=== PATIENT | male | born 1980 | race Caucasian/White ===

== ENCOUNTER 2016-05-25 09:30 | Emergency (ER) | payer MEDICAID ==
[2016-05-25] MEDS ORDERED: PHENAZOPYRIDINE 100 MG TABLET PO STA (10:34)
[2016-05-25] MEDS ORDERED: NITROFURANTOIN MACRO 100 MG CAPSULE PO STA (10:34)
== END 2016-05-25 10:40 | disposition home or self-care (01) ==
DX: N30.01 Acute cystitis with hematuria (principal); G80.9 Cerebral palsy, unspecified; F17.200 Nicotine dependence, unspecified, uncomplicated

== ENCOUNTER 2016-10-04 14:12 | Emergency (ER) | payer MEDICAID ==
[2016-10-04] MEDS ORDERED: IBUPROFEN 800 MG TABLET PO STA (16:50)
--- NOTE | 2016-10-04 16:55 | ED Physician Documentation ---
PD HPI BACK PAIN - Stated complaint Stated Complaint: BACK PX - Chief complaint Chief Complaint: Back Pain - History obtained from History obtained from: Patient - History of Present Illness Timing - onset: How many weeks ago (1) Timing - details: Waxing and waning Location: Lower Quality: Pain Worsened by: Twisting - Treatment prior to arrival Treatment prior to arrival: Cyclobenzaprine without relief. - Additional information Additional information: The patient is a 36-year-old male with history of cerebral palsy and back injury 17 years ago, who presents with recurrent episode of lower back pain. This episode has been waxing and waning for the past week. He denies any recent injury, but his symptoms were exacerbated after mowing his lawn. He denies fever , dysuria or urinary incontinence. He denies numbness or weakness in his lower extremities. He has been using cyclobenzeprine without relief. Review of Systems Constitutional: denies: Fever Nose: denies: Congestion Throat: denies: Sore throat Cardiac: denies: Chest pain / pressure Respiratory: denies: Dyspnea GI: denies: Abdominal Pain, Nausea, Vomiting : denies: Dysuria, Incontinent Skin: denies: Rash Musculoskeletal: reports: Back pain. denies: Neck pain Neurologic: denies: Focal weakness, Numbness, Headache PD PAST MEDICAL HISTORY - Past Medical History Cardiovascular: None Respiratory: None Neuro: Cerebral palsy, Other Endocrine/Autoimmune: None GI: GERD : Frequency, Other HEENT: Other Psych: None Musculoskeletal: Gout, Chronic back pain Derm: None - Past Surgical History Past Surgical History: Yes General: Bowel surgery, Other Ortho: Other - Present Medications Home Medications: Ambulatory Orders Medication Instructions Recorded Confirmed Allopurinol 100 mg PO BID 08/28/14 10/04/16 Oxybutynin [Ditropan] 5 mg PO BID 08/28/14 10/04/16 Cyclobenzaprine [Flexeril] 1 tab PO TID PRN 01/27/15 10/04/16 Omeprazole 20 mg PO DAILY 05/04/16 10/04/16 Fluticasone [Flonase] 1 spray PAWAN PRN PRN 10/04/16 10/04/16 Nitrofurantoin [Macrobid] 100 mg PO BID #10 capsule 10/04/16 - Allergies Allergies/Adverse Reactions: Allergies Allergy/AdvReac Type Severity Reaction Status Date / Time No Known Drug Allergies Allergy Verified 10/04/16 14:22 - Social History Does the pt smoke?: Yes Smoking Status: Current every day smoker Does the pt drink ETOH?: Yes Does the pt have substance abuse?: No - Immunizations Immunizations are current?: Yes - POLST Patient has POLST: No PD ED PE NORMAL - Vitals Vital signs reviewed: Yes (normal) - General General: Alert and oriented X 3, Well developed/nourished - HEENT HEENT: Atraumatic, EOMI, Pharynx benign - Neck Neck: No adenopathy, No JVD - Cardiac Cardiac: RRR, No murmur - Respiratory Respiratory: No respiratory distress, Clear bilaterally - Abdomen Abdomen: Soft, Other (Mild suprapubic tenderness to palpation, without rebound or guarding.) - Back Back: No spinal TTP, Other (Mild tenderness to palpation in the flank areas bilaterally.) - Derm Derm: No rash - Extremities Extremities: No edema, No calf tenderness / cord, Other (Straight leg raise test is negative bilaterally.) - Neuro Neuro: Alert and oriented X 3, No motor deficit, No sensory deficit Results - Vitals Vitals: Oxygen O2 Source Room air - Labs Labs: Microbiology 10/04/16 16:45 Urine Culture - Final Urine,Random Escherichia Coli Laboratory Tests 10/04/16 16:45 Urine Color YELLOW Urine Clarity CLOUDY Urine pH 6.0 Ur Specific [place] 1.020 Urine Protein NEGATIVE Urine Glucose (UA) NEGATIVE Urine Ketones NEGATIVE Urine Occult Blood TRACE-INTA Urine Nitrite POSITIVE H Urine Bilirubin NEGATIVE Urine Urobilinogen 0.2 (NORMAL) Ur Leukocyte Esterase LARGE H Urine RBC 6-10 H Urine WBC 11-25 H Ur Squamous Epith Cells NONE SEEN Urine Bacteria Many H Ur Microscopic Review INDICATED Urine Culture Comments INDICATED PD MEDICAL DECISION MAKING - ED course Complexity details: reviewed old records, reviewed results, re-evaluated patient , considered differential, d/w patient ED course: The patient's low back pain is most consistent with urinary tract infection. He does not appear septic, and I doubt pyelonephritis. Given the results of his urinalysis, I doubt that his back pain is musculoskeletal in etiology. Treatment in the emergency department included administration of nitrofurantoin and ibuprofen 800 mg orally. He is being discharged with prescription for Macrobid. I discussed with him the expected course of illness, antibiotic treatment and outpatient follow-up, as well as potentially worrisome signs or symptoms that should prompt reevaluation in the emergency department. Departure - Departure Disposition: 01 Home, Self Care Clinical Impression: Back pain Qualifiers: Back pain location: low back pain Chronicity: acute Back pain laterality: bilateral Sciatica presence: without sciatica Qualified Code(s): M54.5 - Low back pain UTI (urinary tract infection) Qualifiers: Urinary tract infection type: acute cystitis Hematuria presence: with hematuria Qualified Code(s): N30.01 - Acute cystitis with hematuria Condition: Stable Instructions: ED UTI Cystitis Male Follow-Up: Sandra Law ARNP [Primary Care Provider] - Prescriptions: Nitrofurantoin [Macrobid] 100 mg PO BID #10 capsule Comments: Drink plenty of fluids including cranberry juice. Take Macrobid twice daily as prescribed. Follow up with your primary physician within one to 2 weeks. Call to schedule an appointment. Return to the emergency department if you develop increasing pain, fever with shaking chills, persistent vomiting, or otherwise worsening symptoms. Discharge Date/Time: 10/04/16 17:31
[2016-10-04 16:56] LABS: BILIRUBIN,URINE NEGATIVE (NEGATIVE); UA w/ MICROSCOPIC CHARGE YES
[2016-10-04] MEDS ORDERED: IBUPROFEN 800 MG TABLET PO ONE (16:59)
[2016-10-04 17:13] LABS: UR CULTURE IF IND INDICATED
[2016-10-04] MEDS ORDERED: NITROFURANTOIN MACRO 100 MG CAPSULE PO STA (17:15)
[2016-10-04] MEDS ORDERED: NITROFURANTOIN MACRO 100 MG CAPSULE PO ONE (17:27)
[2016-10-04 17:36] VITALS: BP 128/86
== END 2016-10-04 17:31 | disposition home or self-care (01) ==
LOC: ED 14:12
DX: N30.00 Acute cystitis without hematuria (principal); M54.5 Low back pain; G80.9 Cerebral palsy, unspecified; K21.9 Gastro-esophageal reflux disease without esophagitis; F17.200 Nicotine dependence, unspecified, uncomplicated
CPT/HCPCS: 81001; 87077; 87086; 87181; 99283; A9270; 81003

== ENCOUNTER 2016-12-10 09:38 | Emergency (ER) | payer MEDICAID ==
--- NOTE | 2016-12-10 12:26 | XRAY Preliminary Report ---
Exam: XR Foot 3 View LT Impression: Focal area of sclerosis involving the posterior calcaneus that may represent a stress zoë ction, nondisplaced fracture, or normal trabeculations. Well-circumscribed sclerotic lesion in the distal tibia that most likely represents A benign fibro-osseous lesion. [facility] SITE ID: [id number]
--- NOTE | 2016-12-10 12:29 | XRAY Report ---
EXAM: LEFT FOOT RADIOGRAPHY EXAM DATE: 12/10/2016 11:19 AM. CLINICAL HISTORY: Pain in heel with ambulation. COMPARISON: None. TECHNIQUE: 3 views. FINDINGS: Mild increased sclerosis is seen involving the posterior calcaneus that may represent a stress reacti on or fracture. There is a focal area of increased sclerosis. It measures approximately 5 x 8 mm. The margins are well-circumscribed. The joint spaces are well-preserved. No calcaneal spur is identified . Impression: Focal area of sclerosis involving the posterior calcaneus that may represent a stress zoë ction, nondisplaced fracture, or normal trabeculations. Well-circumscribed sclerotic lesion in the distal tibia that most likely represents A benign fibro-osseous lesion. [facility] Referring Provider Line: [phone] SITE ID: [id number]
--- NOTE | 2016-12-10 12:57 | ED Physician Documentation ---
History of Present Illness - Stated complaint Stated Complaint: L FOOT INJ - Chief complaint Chief Complaint: Ext Problem - Additonal information Additional information: hx from pt 36 male twsited foot in a ditch 4 days ago still hurts Review of Systems Musculoskeletal: reports: Pain with weight bearing PD PAST MEDICAL HISTORY - Past Medical History Past Medical History: Yes Cardiovascular: None Respiratory: None Neuro: Cerebral palsy, Other Endocrine/Autoimmune: None GI: GERD : Frequency, Other HEENT: Other Psych: None Musculoskeletal: Gout, Chronic back pain Derm: None - Past Surgical History Past Surgical History: Yes General: Bowel surgery, Other Ortho: Other - Present Medications Home Medications: Ambulatory Orders Medication Instructions Recorded Confirmed Allopurinol 100 mg PO BID 08/28/14 12/10/16 Oxybutynin [Ditropan] 5 mg PO BID 08/28/14 12/10/16 Cyclobenzaprine [Flexeril] 1 tab PO TID PRN 01/27/15 12/10/16 Omeprazole 20 mg PO DAILY 05/04/16 12/10/16 Fluticasone [Flonase] 1 spray PAWAN PRN PRN 10/04/16 12/10/16 - Allergies Allergies/Adverse Reactions: Allergies Allergy/AdvReac Type Severity Reaction Status Date / Time No Known Drug Allergies Allergy Verified 12/10/16 09:49 - Social History Does the pt smoke?: Yes Smoking Status: Current every day smoker Does the pt drink ETOH?: Yes Does the pt have substance abuse?: No - Immunizations Immunizations are current?: No Immunizations: TDAP >10years/unknown - POLST Patient has POLST: No PD ED PE NORMAL - Vitals Vital signs reviewed: Yes - Extremities Extremities: Other (TTP plantar surface > dorsal proximal foot, + swelling, MSV intact) Results - Vitals Vitals: Vital Signs - 24 hr 12/10/16 09:46 Temperature 36.4 C L Heart Rate 97 Respiratory 14 Rate Blood Pressure 145/88 H O2 Saturation 100 Oxygen O2 Source Room air - Rads (name of study) foot Radiology: See rad report (possibloe stress fx or non displaced fx posterior calcaneus) Departure - Departure Disposition: 01 Home, Self Care Clinical Impression: Foot fracture, left Qualifiers: Encounter type: initial encounter Fracture type: closed Qualified Code(s): S92.902A - Unspecified fracture of left foot, initial encounter for closed fracture Condition: Good Instructions: ED Fx Foot, ED Crutch Walking Follow-Up: Sandra Law ARNP [Primary Care Provider] - [facility] [Provider Group] Comments: The xray shows a probable stress fracture to the calcaneus bone in your foot. Use the DAYO wrap, ice and elevation to keep the swelling down. Wear the boot for protection and stabilization. No weight bearing - use the crutches. Motrin and tylenol as needed for the pain. Follow up with orthopedics - you need to call to schedule And please follow up with your PMD to recheck your blood pressure - it was high today
[2016-12-10 13:59] VITALS: BP 141/65
== END 2016-12-10 13:15 | disposition home or self-care (01) ==
LOC: ED 09:38
DX: S92.902A Unspecified fracture of left foot, initial encounter for closed fracture (principal); X50.1XXA Overexertion from prolonged static or awkward postures, initial encounter; Y92.89 Other specified places as the place of occurrence of the external cause; F17.200 Nicotine dependence, unspecified, uncomplicated; G80.9 Cerebral palsy, unspecified
CPT/HCPCS: 99283

== ENCOUNTER 2017-03-11 08:39 | Outpatient (CLI) | payer MEDICAID ==
[2017-03-11 09:49] LABS: BASOPHILS % (AUTO) 0.3 %; EOSINOPHILS # (AUTO) 0.2 10^3/uL (0.0-0.7); EOSINOPHILS % (AUTO) 3.8 %; HCT - HEMATOCRIT 46.9 % (42.0-52.0); HGB - HEMOGLOBIN 16.4 g/dL (14.0-18.0); LYMPHOCYTES # (AUTO) 1.8 10^3/uL (1.5-3.5); LYMPHOCYTES % (AUTO) 29.5 %; MEAN CORPUSCULAR HEMOGLOBIN 31.5 pg (27.0-31.0); MEAN CORPUSCULAR HGB CONC 34.9 g/dL (32.0-36.0); MEAN CORPUSCULAR VOLUME 90.3 fL (80.0-94.0); MONOCYTES # (AUTO) 0.4 10^3/uL (0.0-1.0); MONOCYTES % (AUTO) 7.4 %; NEUTROPHILS # (AUTO) 3.5 10^3/uL (1.5-6.6); NUCLEATED RED BLOOD CELLS AUTO 0.1 /100WBC; RED BLOOD COUNT 5.19 10^6/uL (4.70-6.10); RED CELL DISTRIBUTION WIDTH 12.7 % (12.0-15.0)
[2017-03-11 10:07] LABS: ALBUMIN/GLOBULIN RATIO 1.4 (1.0-2.2); BILIRUBIN,TOTAL 1.3 mg/dL (0.2-1.0); BUN - BLOOD UREA NITROGEN 13 mg/dL (6-20); CALCIUM 9.8 mg/dL (8.5-10.3); CARBON DIOXIDE - CO2 28 mmol/L (21-32); CHLORIDE 101 mmol/L (101-111); CREATININE 1.1 mg/dL (0.6-1.2); GFR - MDRD 75 (>89); GLUCOSE 84 mg/dL (70-100); POTASSIUM 3.9 mmol/L (3.5-5.0); SODIUM 139 mmol/L (135-145)
== END 2017-03-11 08:40 | disposition home or self-care (01) ==
LOC: LAB 08:39
PROVIDERS: ATTEND Nurse Practitioner Family
DX: R35.1 Nocturia (principal); R29.90 Unspecified symptoms and signs involving the nervous system
CPT/HCPCS: 36415; 80053; 84443; 85025

== ENCOUNTER 2017-11-28 08:39 | Outpatient (CLI) | payer MEDICAID | END 2017-11-28 08:40 | disposition home or self-care (01) | LOC: LAB 08:39 | PROVIDERS: ATTEND Nurse Practitioner Family | DX: M10.9 Gout, unspecified (principal) | CPT/HCPCS: 36415; 84550 ==

== ENCOUNTER 2017-11-29 09:49 | Emergency (ER) | payer MEDICAID ==
--- NOTE | 2017-11-29 10:09 | ED Physician Documentation ---
PD HPI CHEST PAIN - Stated complaint Stated Complaint: LF UP CHEST PX/COUGHING - Chief complaint Chief Complaint: General - History obtained from History obtained from: Patient - History of Present Illness Timing - onset: How many days ago (several) Timing - details: Intermittant Pain level max: 1 Pain level now: 0 Quality: Dull Location: Left chest - Treatment prior to arrival Treatment prior to arrival: Naprosyn, which seems to have helped. - Additional information Additional information: The patient is a 37-year-old male who presents with dull left anterior chest pain that he states has been intermittent for the past several days. He also reports occasional cough without sputum production. He attributes it to his cigarette smoking. He denies fever, shortness of breath, nausea or vomiting. He took Naprosyn prior to arrival and states that it seems to have helped. He thinks the pain is due to lifting he did earlier in the week, or possibly due to his cough, but he "wants to be sure" that it is not something more serious. He reports history of bronchitis with similar symptoms in the past. Review of Systems Constitutional: denies: Fever Nose: denies: Congestion Throat: denies: Sore throat Cardiac: reports: Chest pain / pressure. denies: Palpitations Respiratory: reports: Cough (Occasional smoker's cough.). denies: Dyspnea GI: denies: Abdominal Pain, Nausea, Vomiting : denies: Dysuria Skin: denies: Rash Musculoskeletal: denies: Neck pain, Back pain, Extremity swelling Neurologic: denies: Headache PD PAST MEDICAL HISTORY - Past Medical History Cardiovascular: None Respiratory: None Endocrine/Autoimmune: None GI: GERD : Frequency, Other HEENT: Other Psych: None Musculoskeletal: Gout, Chronic back pain Derm: None - Past Surgical History Past Surgical History: Yes General: Bowel surgery, Other Ortho: Other - Present Medications Home Medications: Ambulatory Orders Medication Instructions Recorded Confirmed Allopurinol 100 mg PO BID 08/28/14 12/10/16 Oxybutynin [Ditropan] 5 mg PO BID 08/28/14 12/10/16 Cyclobenzaprine [Flexeril] 1 tab PO TID PRN 01/27/15 12/10/16 Omeprazole 20 mg PO DAILY 05/04/16 12/10/16 Fluticasone [Flonase] 1 spray PAWAN PRN PRN 10/04/16 12/10/16 - Allergies Allergies/Adverse Reactions: Allergies Allergy/AdvReac Type Severity Reaction Status Date / Time No Known Drug Allergies Allergy Verified 12/10/16 09:49 - Social History Does the pt smoke?: Yes Smoking Status: Current every day smoker Does the pt drink ETOH?: Yes Does the pt have substance abuse?: No - Immunizations Immunizations are current?: No Immunizations: TDAP >10years/unknown - POLST Patient has POLST: No PD ED PE NORMAL - Vitals Vital signs reviewed: Yes (Initially hypertensive.) - General General: Alert and oriented X 3, Well developed/nourished - HEENT HEENT: Atraumatic - Neck Neck: No adenopathy, No JVD - Cardiac Cardiac: RRR, No murmur - Respiratory Respiratory: No respiratory distress, Clear bilaterally, Other (No significant chest wall tenderness to palpation.) - Abdomen Abdomen: Soft, Non tender, Other (Scaphoid abdomen.) - Back Back: No CVA TTP - Derm Derm: No rash - Extremities Extremities: No edema, No calf tenderness / cord - Neuro Neuro: Alert and oriented X 3, No motor deficit, Normal speech Results - Vitals Vitals: Vital Signs - 24 hr 11/29/17 11/29/17 09:53 11:06 Temperature 36.7 C 36.6 C Heart Rate 69 73 Respiratory 20 20 Rate Blood Pressure 155/94 H 146/98 H O2 Saturation 98 100 Oxygen O2 Source Room air - EKG (time done) 09:55 Rate: Rate (enter#) (81) Rhythm: NSR Covert: Normal Intervals: Normal ID QRS: Normal Ischemia: Normal ST segments Computer interpretation: Disagree with computer (Probably not LAE---more likely high amplitude wave form is due to thin chest wall.) - Rads (name of study) CXR Radiology: Prelim report reviewed, EMP read contemporaneously, See rad report ( No acute disease in the chest.) PD MEDICAL DECISION MAKING - ED course Complexity details: reviewed old records, reviewed results, re-evaluated patient , considered differential, d/w patient ED course: The patient's presentation is most consistent with pleuritic chest pain. Chest x-ray reveals no evidence of pneumonia, pneumothorax, and I doubt pulmonary embolus. His symptoms are not suggestive of cardiac ischemia, and his electrocardiogram reveals no acute abnormalities. I discussed with him the diagnosis, expected course of illness, symptomatic treatment and outpatient follow-up, as well as potentially worrisome signs or symptoms that should prompt reevaluation in the emergency department. - Sepsis Event Vital Signs: Vital Signs - 24 hr 11/29/17 11/29/17 09:53 11:06 Temperature 36.7 C 36.6 C Heart Rate 69 73 Respiratory 20 20 Rate Blood Pressure 155/94 H 146/98 H O2 Saturation 98 100 Oxygen O2 Source Room air Departure - Departure Disposition: 01 Home, Self Care Clinical Impression: Cough Chest pain Qualifiers: Chest pain type: pleurodynia Qualified Code(s): R07.81 - Pleurodynia Condition: Stable Instructions: ED Chest Pain Pleurisy Follow-Up: Gabbi Colunga PA-C [Physician No Access] - Comments: Try to stop smoking cigarettes. Continue to use Naprosyn or ibuprofen as needed for discomfort. Follow up with your primary provider within 2 weeks. Call to schedule appointment. Return to the emergency department if you develop increasing chest pain, shortness of breath, or otherwise worsening symptoms. Discharge Date/Time: 11/29/17 11:07
--- NOTE | 2017-11-29 10:44 | XRAY Report ---
Procedure Date: 11/29/2017 Accession Number: [id number] / [id number] Procedure: XR - Chest 2 View X-Ray CPT Code: 12851 FULL RESULT: EXAM: CHEST RADIOGRAPHY EXAM DATE: 11/29/2017 10:20 AM. CLINICAL HISTORY: Left sided chest pain. COMPARISON: 02/04/2016. TECHNIQUE: 2 views. FINDINGS: Lungs/Pleura: No focal opacities evident. No pleural effusion. No pneumothorax. Normal volumes. Mediastinum: Heart and mediastinal contours are unremarkable. Other: No acute osseous abnormalities. IMPRESSION: 1. No acute disease in the chest. [facility]
[2017-11-29 11:07] VITALS: BP 146/98
== END 2017-11-29 11:07 | disposition home or self-care (01) ==
LOC: ED 09:49
DX: R05 Cough (principal); R07.81 Pleurodynia; F17.200 Nicotine dependence, unspecified, uncomplicated
CPT/HCPCS: 71046; 93005; 99283; 99284

== ENCOUNTER 2018-03-14 10:46 | Emergency (ER) | payer MEDICAID ==
[2018-03-14 10:50] VITALS: BP 145/102
[2018-03-14] MEDS ORDERED: METHOCARBAMOL 500 MG TABLET PO STA (12:42)
[2018-03-14] MEDS ORDERED: KETOROLAC 60 MG/2 ML VIAL IM STA (12:42)
--- NOTE | 2018-03-14 12:46 | ED Physician Documentation ---
History of Present Illness - Stated complaint Stated Complaint: LEFT BACK PX - Chief complaint Chief Complaint: Back Pain - History obtained from History obtained from: Patient - History of Present Illness Timing: Chronic Pain level max: 8 Pain level now: 8 Improved by: rest Worsened by: walking, movement - Additonal information Additional information: Patient is a 37-year-old male who presents to the emergency department with left hip pain and left low back pain. This is been ongoing for several years but worsening recently. States it hurts more when he stretches his hip. He took his Flexeril at home without relief. 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 States has not seen physical therapy review. He also has cerebral palsy and walks with a different gait and this has put increased pressure on his hip and back. No numbness or tingling. No loss of bowel or bladder control. No fevers. No IV drug use. Review of Systems Constitutional: denies: Fever, Chills Respiratory: denies: Cough GI: denies: Nausea, Vomiting, Diarrhea Skin: denies: Rash Musculoskeletal: denies: Neck pain Neurologic: denies: Focal weakness, Numbness, Headache PD PAST MEDICAL HISTORY - Past Medical History Cardiovascular: None Respiratory: None Endocrine/Autoimmune: None GI: GERD : Frequency, Other HEENT: Other Psych: None Musculoskeletal: Gout, Chronic back pain Derm: None - Past Surgical History Past Surgical History: Yes General: Bowel surgery, Other Ortho: Other - Present Medications Home Medications: Ambulatory Orders Medication Instructions Recorded Confirmed Allopurinol 100 mg PO BID 08/28/14 12/10/16 Oxybutynin [Ditropan] 5 mg PO BID 08/28/14 12/10/16 Cyclobenzaprine [Flexeril] 1 tab PO TID PRN 01/27/15 12/10/16 Fluticasone [Flonase] 1 spray PAWAN PRN PRN 10/04/16 12/10/16 Meloxicam [Mobic] 15 mg PO DAILY PRN #20 tablet 03/14/18 Methocarbamol [Robaxin-750] 750 mg PO Q8H PRN #10 tablet 03/14/18 raNITIdine [Zantac] 150 mg PO DAILY 03/14/18 03/14/18 - Allergies Allergies/Adverse Reactions: Allergies Allergy/AdvReac Type Severity Reaction Status Date / Time No Known Drug Allergies Allergy Verified 03/14/18 10:50 - Social History Does the pt smoke?: Yes Smoking Status: Current every day smoker Does the pt drink ETOH?: Yes Does the pt have substance abuse?: No - Immunizations Immunizations are current?: No Immunizations: TDAP >10years/unknown - POLST Patient has POLST: No PD ED PE NORMAL - Vitals Vital signs reviewed: Yes - General General: Alert and oriented X 3, No acute distress - HEENT HEENT: Moist mucous membranes - Neck Neck: Supple, no meningeal sign - Cardiac Cardiac: RRR, Strong equal pulses - Respiratory Respiratory: No respiratory distress, Clear bilaterally - Back Back: No spinal TTP - Derm Derm: Warm and dry - Extremities Extremities: Other (Left hip - Muscle spasm present over the iliac crests and left hip. There is no bony tenderness. There is no tenderness over the sacroiliac joint. No tenderness over the lumbar spine. No step-off or deformity.) - Neuro Neuro: Alert and oriented X 3, No motor deficit, No sensory deficit, Other (Normal bilateral lower extremity patellar and ankle jerk reflexes. Normal great toe extension bilaterally. no saddle anesthesia) - Psych Psych: Normal mood, Normal affect Results - Vitals Vitals: Vital Signs - 24 hr 03/14/18 10:48 Temperature 36.7 C Heart Rate 80 Respiratory 16 Rate Blood Pressure 145/102 H O2 Saturation 99 Oxygen O2 Source Room air PD MEDICAL DECISION MAKING - ED course Complexity details: considered differential, d/w patient ED course: Patient is a 37-year-old male who presents to the emergency department with spasm in the left hip. Will place on muscle relaxants and anti-inflammatories for home. He is well-appearing, nontoxic. No evidence of sacroiliitis, cauda equina, epidural abscess. Ambulating well. Patient counseled regarding signs and symptoms for which I believe and urgent re-evaluation would be necessary. Patient with good understanding of and agreement to plan and is comfortable g oing home at this time This document was made in part using voice recognition software. While efforts are made to proofread this document, sound alike and grammatical errors may occur. Departure - Departure Disposition: 01 Home, Self Care Clinical Impression: Muscle spasm Condition: Good Instructions: ED Spasm Muscle Follow-Up: Sandra Law ARNP [Primary Care Provider] - Within 1 week Prescriptions: Meloxicam [Mobic] 15 mg PO DAILY PRN #20 tablet PRN Reason: pain Methocarbamol [Robaxin-750] 750 mg PO Q8H PRN #10 tablet PRN Reason: muscle spasm Comments: Use the medications as prescribed. Follow-up with your doctor for further care. They may want to refer you to physical therapy again for your hip. Return if you worsen Discharge Date/Time: 03/14/18 13:13
== END 2018-03-14 13:13 | disposition home or self-care (01) ==
LOC: ED 10:46
DX: M62.838 Other muscle spasm (principal); M25.552 Pain in left hip; F17.200 Nicotine dependence, unspecified, uncomplicated
CPT/HCPCS: 96372; 99283; A9270

== ENCOUNTER 2018-07-24 15:15 | Emergency (ER) | payer MEDICAID ==
[2018-07-24 15:21] VITALS: BP 129/78
[2018-07-24] MEDS ORDERED: ACETAMINOPHEN 500 MG TABLET PO STA (15:46)
[2018-07-24] MEDS ORDERED: NAPROXEN 250 MG TABLET PO STA (15:46)
--- NOTE | 2018-07-24 16:14 | ED Physician Documentation ---
History of Present Illness - Stated complaint Stated Complaint: FEVER - Chief complaint Chief Complaint: Fever - Additonal information Additional information: 38-year-old male presents emergency department with 1 day of fevers, body aches, chills, sore throat and cough.No other associated symptoms. No shortness of breath or wheezing. Symptoms are described as moderate. Review of Systems Constitutional: reports: Fever, Chills, Myalgias, Fatigue Eyes: denies: Discharge Ears: denies: Drainage/discharge Nose: reports: Rhinorrhea / runny nose, Congestion Throat: reports: Sore throat Cardiac: denies: Chest pain / pressure Respiratory: reports: Cough GI: denies: Abdominal Pain : denies: Dysuria Skin: denies: Rash Musculoskeletal: denies: Neck pain Neurologic: denies: Generalized weakness PD PAST MEDICAL HISTORY - Past Medical History Cardiovascular: None Respiratory: None Endocrine/Autoimmune: None GI: GERD : Frequency, Other HEENT: Other Psych: None Musculoskeletal: Gout, Chronic back pain Derm: None - Past Surgical History Past Surgical History: Yes General: Bowel surgery, Other Ortho: Other - Present Medications Home Medications: Ambulatory Orders Medication Instructions Recorded Confirmed Allopurinol 100 mg PO BID 08/28/14 12/10/16 Oxybutynin [Ditropan] 5 mg PO BID 08/28/14 12/10/16 Cyclobenzaprine [Flexeril] 1 tab PO TID PRN 01/27/15 12/10/16 raNITIdine [Zantac] 150 mg PO DAILY 03/14/18 03/14/18 Albuterol Sulf [Ventolin Hfa 1 - 2 puffs INH Q4HR PRN #1 inhaler 04/25/18 Inhaler] Benzonatate [Tessalon Perle] 100 - 200 mg PO TID PRN #30 capsule 04/25/18 - Allergies Allergies/Adverse Reactions: Allergies Allergy/AdvReac Type Severity Reaction Status Date / Time No Known Drug Allergies Allergy Verified 07/24/18 15:21 - Social History Does the pt smoke?: Yes Smoking Status: Current every day smoker Does the pt drink ETOH?: Yes Does the pt have substance abuse?: No - Immunizations Immunizations are current?: No Immunizations: TDAP >10years/unknown - POLST Patient has POLST: No PD ED PE NORMAL - General General: Alert and oriented X 3, No acute distress - HEENT HEENT: Atraumatic, PERRL, EOMI, Ears normal, Moist mucous membranes - Neck Neck: Supple, no meningeal sign - Cardiac Cardiac: RRR (Tachycardia secondary to the acute viral process), Strong equal pulses - Respiratory Respiratory: No respiratory distress, Clear bilaterally - Derm Derm: Normal color - Extremities Extremities: No deformity - Neuro Neuro: Alert and oriented X 3, conference concierge 2-12 intact, No motor deficit, Normal speech - Psych Psych: Normal mood Results - Vitals Vitals: Vital Signs - 24 hr 07/24/18 15:20 Temperature 38.0 C H Heart Rate 118 H Respiratory 18 Rate Blood Pressure 129/78 O2 Saturation 97 Oxygen O2 Source Room air - Labs Labs: Laboratory Tests 07/24/18 15:20 Influenza A (Rapid) POSITIVE H Influenza B (Rapid) Negative PD MEDICAL DECISION MAKING - ED course ED course: The patient has acute influenza and appears appropriate for discharge and ongoing outpatient management. There are no clinical findings to suggest a superimposed bacterial infection currently the patient appears appropriate for discharge and ongoing outpatient management. I recommended returning to the emergency department for any worsening or any concerns. Departure - Departure Disposition: Home, Self Care Clinical Impression: Influenza Condition: Good Instructions: ED Fever Control Ch, ED Flu Follow-Up: Lyubov Yarbrough DNP [Primary Care Provider] - Within 1 week Comments: Please return to the emergency department for worsening symptoms or any concerns
== END 2018-07-24 16:16 | disposition home or self-care (01) ==
LOC: ED 15:15
DX: J11.1 Influenza due to unidentified influenza virus with other respiratory manifestations (principal); F17.200 Nicotine dependence, unspecified, uncomplicated
CPT/HCPCS: 87275; 87276; 99283; A9270

== ENCOUNTER 2018-07-31 01:28 | Emergency (ER) | payer MEDICAID ==
--- NOTE | 2018-07-31 01:41 | ED Physician Documentation ---
PD HPI URI - Stated complaint Stated Complaint: COUGH - History obtained from History obtained from: Patient - History of Present Illness Timing - onset: How many weeks ago (1) Timing details: Gradual onset, Waxing and waning Pain level now: 6 (chest pain) Associated symptoms: Fever (Tmax 102), Chills, Sweats, Ear pain, Productive cough, Chest pain Similar symptoms before: Diagnosis (influenza) Recently seen: Emergency Dept - Additional information Additional information: T+R from this ED 07/24 after diagnosed with influenza. He returns to the ED c/o increasing cough which began 4 days ago and has become increasingly productive (green sputum), ongoing fevers, bilateral lower chest pain (with coughing). He feels both ears are "clogged" with muffled hearing and sensation of fullness. Review of Systems Constitutional: reports: Fever, Chills, Myalgias, Sweats Ears: reports: Loss of hearing (decreased hearing/muffled), Ear pain. denies: Drainage/discharge, Tinnitus/ringing Throat: denies: Sore throat Cardiac: reports: Chest pain / pressure Respiratory: reports: Cough. denies: Dyspnea, Hemoptysis, Wheezing Neurologic: reports: Headache PD PAST MEDICAL HISTORY - Past Medical History Cardiovascular: None Respiratory: None Endocrine/Autoimmune: None GI: GERD : Frequency, Other HEENT: Other Psych: None Musculoskeletal: Gout, Chronic back pain Derm: None - Past Surgical History Past Surgical History: Yes General: Bowel surgery, Other Ortho: Other - Present Medications Home Medications: Ambulatory Orders Medication Instructions Recorded Confirmed Allopurinol 100 mg PO BID 08/28/14 12/10/16 Oxybutynin [Ditropan] 5 mg PO BID 08/28/14 12/10/16 Cyclobenzaprine [Flexeril] 1 tab PO TID PRN 01/27/15 12/10/16 raNITIdine [Zantac] 150 mg PO DAILY 03/14/18 03/14/18 Albuterol Sulf [Ventolin Hfa 1 - 2 puffs INH Q4HR PRN #1 inhaler 04/25/18 Inhaler] Benzonatate [Tessalon Perle] 100 - 200 mg PO TID PRN #30 capsule 04/25/18 Azithromycin 250 mg PO DAILY #4 tablet 07/31/18 Benzonatate [Tessalon Perle] 100 - 200 mg PO TID PRN #30 capsule 07/31/18 Hydrocodone/Acetaminophen 1 - 2 each PO Q6H PRN #10 tablet 07/31/18 [Hydrocodon-Acetaminophen 5-325] Oseltamivir [Tamiflu] 75 mg PO BID #9 capsule 07/31/18 - Allergies Allergies/Adverse Reactions: Allergies Allergy/AdvReac Type Severity Reaction Status Date / Time No Known Drug Allergies Allergy Verified 07/31/18 01:42 - Social History Does the pt smoke?: Yes Smoking Status: Current every day smoker Does the pt drink ETOH?: Yes Does the pt have substance abuse?: No - Immunizations Immunizations are current?: No Immunizations: TDAP >10years/unknown - POLST Patient has POLST: No PD ED PE NORMAL - Vitals Vital signs reviewed: Yes - General General: Alert and oriented X 3, No acute distress, Well developed/nourished - Neck Neck: Supple, no meningeal sign - Cardiac Cardiac: RRR, No murmur - Respiratory Respiratory: No respiratory distress - Abdomen Abdomen: Soft, Non tender - Extremities Extremities: No edema PD ED PE EXPANDED - Respiratory Respiratory: Rhonchi (bilateral bases, L>R) Results - Vitals Vitals: Vital Signs - 24 hr 07/31/18 07/31/18 01:30 02:37 Temperature 36.2 C L Heart Rate 78 95 Respiratory 18 17 Rate Blood Pressure 120/89 H 115/79 O2 Saturation 97 95 Oxygen O2 Source Room air PD MEDICAL DECISION MAKING - ED course Complexity details: reviewed old records, considered differential, d/w patient ED course: worsening symptoms since ED visit one week ago when he had flu A (by swab). He has bilateral rhonchi, mostly left base, and now has productive cough as well as ongoing fevers. Will forgo CXR and treat for suspected early pneumonia; antibiotic given/prescribed for possible bacterial etiology, but also started on Tamiflu (worsening symptoms/progressive illness, as well as PMHx of cerebral palsy, which puts him at higher risk for complications of influenza per CDC criteria). He requests something for his chest pain and I recommended robitussin AC; he then says he already tried this at home and it was ineffective. Given vicodin and rx for short course of same. Departure - Departure Disposition: Home, Self Care Clinical Impression: Influenza and pneumonia Condition: Good Instructions: ED Flu, ED Pneumonia Adult, Medication: Tamiflu (Oseltamivir) Follow-Up: Lyubov Yarbrough DNP [Primary Care Provider] - (3-5 days) Prescriptions: Azithromycin 250 mg PO DAILY #4 tablet Benzonatate [Tessalon Perle] 100 - 200 mg PO TID PRN #30 capsule PRN Reason: Cough Hydrocodone/Acetaminophen [Hydrocodon-Acetaminophen 5-325] 1 - 2 each PO Q6H PRN #10 tablet PRN Reason: pain Oseltamivir [Tamiflu] 75 mg PO BID #9 capsule Discharge Date/Time: 07/31/18 02:44
[2018-07-31] MEDS ORDERED: OSELTAMIVIR 75 MG CAPSULE PO STA (02:22)
[2018-07-31] MEDS ORDERED: AZITHROMYCIN 250 MG TABLET PO STA (02:23)
[2018-07-31] MEDS ORDERED: HYDROcod/ACETAM 5/325 MG TABLET PO STA (02:23)
[2018-07-31] MEDS ORDERED: BENZONATATE 100 MG CAPSULE PO STA (02:23)
[2018-07-31 02:40] VITALS: BP 115/79
== END 2018-07-31 02:44 | disposition home or self-care (01) ==
LOC: ED 01:28
DX: J10.00 Influenza due to other identified influenza virus with unspecified type of pneumonia (principal); G80.9 Cerebral palsy, unspecified; F17.200 Nicotine dependence, unspecified, uncomplicated
CPT/HCPCS: 99283; A9270

== ENCOUNTER 2018-08-14 10:02 | Outpatient (CLI) | payer MEDICAID ==
--- NOTE | 2018-08-14 13:33 | XRAY Report ---
Reason: INFLUENZA,PRODUCTIVE COUGH,ASTHMA Procedure Date: 08/14/2018 Accession Number: [id number] / [id number] Procedure: XR - Chest 2 View X-Ray CPT Code: 75370 FULL RESULT: EXAM: CHEST RADIOGRAPHY EXAM DATE: 08/14/2018 10:40 AM. CLINICAL HISTORY: Influenza, productive cough, asthma. COMPARISON: CHEST 2 VIEW 04/25/2018 2:19 PM. TECHNIQUE: 2 views. FINDINGS: Lungs/Pleura: No focal opacities evident. No pleural effusion. No pneumothorax. Normal volumes. Mediastinum: Heart and mediastinal contours are unremarkable. Other: None. IMPRESSION: No acute airspace consolidation. RADIA
== END 2018-08-14 10:03 | disposition home or self-care (01) ==
LOC: DI 10:02
PROVIDERS: ATTEND Nurse Practitioner
DX: J10.1 Influenza due to other identified influenza virus with other respiratory manifestations (principal); J45.991 Cough variant asthma; R05 Cough
CPT/HCPCS: 71046

== ENCOUNTER 2018-10-14 12:06 | Emergency (ER) | payer MEDICAID ==
[2018-10-14 12:14] VITALS: BP 149/96
[2018-10-14] MEDS ORDERED: IPRATROPIUM/ALBUTEROL 3 ML NEB INH STA (13:39)
--- NOTE | 2018-10-14 13:42 | ED Physician Documentation ---
PD HPI DYSPNEA - Stated complaint Stated Complaint: SOA - Chief complaint Chief Complaint: Resp - History obtained from History obtained from: Patient - History of Present Illness Timing - onset: Other (38-year-old with history of tobacco abuse presents with 2 months of persistent cough and shortness of breath that started after having influenza in July. He is actually slowly improving but the symptoms are persistent. He seems to perseverate on the fact that the first 2 times he was here he was not "given" a chest x-ray. But he had a subsequent x-ray performed by his primary care physician that was reportedly negative.) Review of Systems Constitutional: denies: Fever, Chills Nose: denies: Rhinorrhea / runny nose, Congestion Throat: denies: Sore throat Cardiac: denies: Chest pain / pressure, Palpitations Respiratory: reports: Dyspnea, Cough. denies: Hemoptysis, Wheezing PD PAST MEDICAL HISTORY - Past Medical History Cardiovascular: None Respiratory: None Endocrine/Autoimmune: None GI: GERD : Frequency, Other HEENT: Other Psych: None Musculoskeletal: Gout, Chronic back pain Derm: None - Past Surgical History Past Surgical History: Yes General: Bowel surgery, Other Ortho: Other - Present Medications Home Medications: Ambulatory Orders Medication Instructions Recorded Confirmed Allopurinol 100 mg PO BID 08/28/14 12/10/16 Oxybutynin [Ditropan] 5 mg PO BID 08/28/14 12/10/16 Cyclobenzaprine [Flexeril] 1 tab PO TID PRN 01/27/15 12/10/16 raNITIdine [Zantac] 150 mg PO DAILY 03/14/18 03/14/18 Albuterol Sulf [Ventolin Hfa 1 - 2 puffs INH Q4HR PRN #1 inhaler 04/25/18 Inhaler] Benzonatate [Tessalon Perle] 100 - 200 mg PO TID PRN #30 capsule 04/25/18 Azithromycin 250 mg PO DAILY #4 tablet 07/31/18 Benzonatate [Tessalon Perle] 100 - 200 mg PO TID PRN #30 capsule 07/31/18 Hydrocodone/Acetaminophen 1 - 2 each PO Q6H PRN #10 tablet 07/31/18 [Hydrocodon-Acetaminophen 5-325] Oseltamivir [Tamiflu] 75 mg PO BID #9 capsule 07/31/18 Albuterol Sulf [Ventolin Hfa 1 - 2 puffs INH Q4HR PRN #1 inhaler 10/14/18 Inhaler] Azithromycin [Zithromax] 1 tab PO DAILY #6 tablet 10/14/18 predniSONE [Deltasone] 20 mg PO [id number] #21 tab 10/14/18 - Allergies Allergies/Adverse Reactions: Allergies Allergy/AdvReac Type Severity Reaction Status Date / Time No Known Drug Allergies Allergy Verified 10/14/18 12:13 - Social History Does the pt smoke?: Yes Smoking Status: Current every day smoker Does the pt drink ETOH?: Yes Does the pt have substance abuse?: No - Immunizations Immunizations are current?: No Immunizations: TDAP >10years/unknown - POLST Patient has POLST: No PD ED PE NORMAL - Vitals Vital signs reviewed: Yes - General General: Alert and oriented X 3, No acute distress, Well developed/nourished - HEENT HEENT: PERRL, EOMI, Ears normal - Neck Neck: Supple, no meningeal sign, No bony TTP - Cardiac Cardiac: RRR, No murmur - Respiratory Respiratory: No respiratory distress, Other (Mild diffuse expiratory wheezes with excellent air motion) - Abdomen Abdomen: Non tender - Extremities Extremities: No edema, No calf tenderness / cord - Neuro Neuro: Alert and oriented X 3, Normal speech Results - Vitals Vitals: Vital Signs - 24 hr 10/14/18 12:12 Temperature 37.0 C Heart Rate 80 Respiratory 20 Rate Blood Pressure 149/96 H O2 Saturation 97 Oxygen O2 Source Room air PD MEDICAL DECISION MAKING - ED course ED course: 38-year-old gentleman with persistent bronchitic symptoms of 2 months duration with underlying tobacco abuse. Given the long time course and potential for underlying COPD he was treated with steroids and antibiotics. I offered a chest x-ray as he seemed to perseverate on that but after discussion when I made it clear that would be unlikely to change today's treatment he declined. Departure - Departure Disposition: 01 Home, Self Care Clinical Impression: Bronchitis Condition: Good Record reviewed to determine appropriate education?: Yes Instructions: ED Bronchitis Asthmatic, ED Smoking Cessation Prescriptions: Albuterol Sulf [Ventolin Hfa Inhaler] 1 - 2 puffs INH Q4HR PRN #1 inhaler PRN Reason: Shortness Of Air/Wheezing Azithromycin [Zithromax] 1 tab PO DAILY #6 tablet predniSONE [Deltasone] 20 mg PO [id number] #21 tab Comments: Call your doctor to arrange a follow-up appointment, make the next available vanesa ointment. In the interim, return anytime if worse or if new symptoms develop. Your blood pressure was elevated today on check into the emergency department. This does not mean that you have hypertension, it is a common phenomenon to come to the emergency department and have elevated blood pressure. I recommend that you see your primary care physician within the week to have it rechecked when y ou are feeling better.
== END 2018-10-14 13:59 | disposition home or self-care (01) ==
LOC: ED 12:06
DX: J40 Bronchitis, not specified as acute or chronic (principal); R03.0 Elevated blood-pressure reading, without diagnosis of hypertension; F17.200 Nicotine dependence, unspecified, uncomplicated
CPT/HCPCS: 94640; 99283

== ENCOUNTER 2019-12-07 10:14 | Outpatient (CLI) | payer MEDICAID ==
[2019-12-07 10:32] LABS: BASOPHILS % (AUTO) 0.4 %; EOSINOPHILS # (AUTO) 0.1 10^3/uL (0.0-0.7); EOSINOPHILS % (AUTO) 2.9 %; HGB - HEMOGLOBIN 16.2 g/dL (14.0-18.0); LYMPHOCYTES # (AUTO) 1.6 10^3/uL (1.5-3.5); LYMPHOCYTES % (AUTO) 34.4 %; MEAN CORPUSCULAR HEMOGLOBIN 32.5 pg (27.0-31.0); MEAN CORPUSCULAR HGB CONC 36.4 g/dL (32.0-36.0); MEAN CORPUSCULAR VOLUME 89.4 fL (80.0-94.0); MEAN PLATELET VOLUME 10.2 fL (7.4-11.4); MONOCYTES # (AUTO) 0.5 10^3/uL (0.0-1.0); MONOCYTES % (AUTO) 9.9 %; NEUTROPHILS # (AUTO) 2.4 10^3/uL (1.5-6.6); PLT - PLATELET COUNT 171 10^3/uL (130-450); RED BLOOD COUNT 4.98 10^6/uL (4.70-6.10); RED CELL DISTRIBUTION WIDTH 12.6 % (12.0-15.0); WHITE BLOOD COUNT 4.6 x10^3/uL (4.8-10.8)
[2019-12-07 10:45] LABS: ALBUMIN 4.6 g/dL (3.2-5.5); ALBUMIN/GLOBULIN RATIO 1.3 (1.0-2.2); BILIRUBIN,TOTAL 0.9 mg/dL (0.2-1.0); CALCIUM 9.4 mg/dL (8.5-10.3); TOTAL PROTEIN 8.1 g/dL (6.7-8.2)
== END 2019-12-07 10:15 | disposition home or self-care (01) ==
LOC: LAB 10:14
PROVIDERS: ATTEND Family Medicine
DX: M10.9 Gout, unspecified (principal); F17.200 Nicotine dependence, unspecified, uncomplicated; J45.909 Unspecified asthma, uncomplicated; N32.81 Overactive bladder
CPT/HCPCS: 36415; 80053; 84443; 85025

== ENCOUNTER 2019-12-10 09:00 | Outpatient (CLI) | payer MEDICAID ==
[2019-12-10 09:47] LABS: ALBUMIN 4.6 g/dL (3.2-5.5); ALBUMIN/GLOBULIN RATIO 1.3 (1.0-2.2); BILIRUBIN,TOTAL 1.1 mg/dL (0.2-1.0); CALCIUM 9.3 mg/dL (8.5-10.3); CREATININE 1.1 mg/dL (0.6-1.2); TOTAL PROTEIN 8.1 g/dL (6.7-8.2)
[2019-12-11 12:33] LABS: HEPATITIS C ANTIBODY NON-REACTIVE (NON-REACTIVE)
[2019-12-11 12:34] LABS: HEPATITIS B SURFACE ANTIGEN NON-REACTIVE (NON-REACTIVE)
== END 2019-12-10 09:01 | disposition home or self-care (01) ==
LOC: LAB 09:00
PROVIDERS: ATTEND Family Medicine
DX: R94.5 Abnormal results of liver function studies (principal)
CPT/HCPCS: 36415; 80053; 84075; 84080; 86317; 86704; 86803; 87340

== ENCOUNTER 2020-06-16 08:00 | Outpatient (CLI) | payer MEDICAID ==
[2020-06-16 09:49] LABS: ALBUMIN 4.3 g/dL (3.2-5.5); ALBUMIN/GLOBULIN RATIO 1.3 (1.0-2.2); BILIRUBIN,TOTAL 0.7 mg/dL (0.2-1.0); CALCIUM 9.8 mg/dL (8.5-10.3); CREATININE 0.9 mg/dL (0.6-1.2); TOTAL PROTEIN 7.5 g/dL (6.7-8.2)
[2020-06-18 12:52] LABS: HEPATITIS B SURFACE ANTIGEN NON-REACTIVE (NON-REACTIVE); HEPATITIS C ANTIBODY NON-REACTIVE (NON-REACTIVE)
[2020-06-24 08:12] LABS: ALKALINE PHOSPHATASE TOTAL 102
[2020-06-24 08:13] LABS: INTESTINAL ISOENZYMES 24
[2020-06-24 08:14] LABS: BONE ISOENZYMES 31; PLACENTAL ISOENZYMES 0
[2020-06-24 08:15] LABS: LIVER ISOENZYMES 45
== END 2020-06-16 23:59 | disposition home or self-care (01) ==
LOC: LAB 08:00
PROVIDERS: ATTEND Family Medicine
DX: R94.5 Abnormal results of liver function studies (principal)
CPT/HCPCS: 36415; 80053; 84075; 84080; 86317; 86704; 86803; 87340

== ENCOUNTER 2020-10-07 09:35 | Emergency (ER) | payer MEDICAID ==
--- NOTE | 2020-10-07 12:11 | ED Physician Documentation ---
History of Present Illness - Stated complaint Stated Complaint: SOA - Chief complaint Chief Complaint: Resp - History obtained from History obtained from: Patient - Additonal information Additional information: 40yM with pmh asthma on rescue and maintenance inhaler, daily smoker, p/w subjective shortness of breath refractory to inhaler. +nonproductive chronic cough. patient denies fever, leg swelling, steroid use, bedrest, pleurisy, chest pain, recent surgery, or steroid use. Review of Systems Ten Systems: 10 systems reviewed and negative Constitutional: denies: Fever Cardiac: denies: Chest pain / pressure Respiratory: reports: Dyspnea, Cough GI: denies: Nausea PD PAST MEDICAL HISTORY - Past Medical History Past Medical History: Yes Cardiovascular: None Respiratory: None Endocrine/Autoimmune: None GI: GERD : Frequency, Other HEENT: Other Psych: None Musculoskeletal: Gout, Chronic back pain Derm: None - Past Surgical History Past Surgical History: Yes General: Bowel surgery, Other Ortho: Other - Present Medications Home Medications: Ambulatory Orders Medication Instructions Recorded Confirmed Oxybutynin [Ditropan] 5 mg PO BID 08/28/14 10/07/20 allopurinoL [Allopurinol] 100 mg PO BID 08/28/14 10/07/20 Albuterol Sulf [Ventolin Hfa 1 - 2 puffs INH Q4HR PRN #1 inhaler 10/14/18 10/07/20 Inhaler] Divalproex ER [Depakote ER] 500 mg PO DAILY 10/07/20 10/07/20 Fluticasone/Salmeterol [Advair 1 each IH DAILY 10/07/20 10/07/20 250-50 Diskus] predniSONE [Prednisone 21-TAB dose 60 mg PO QDAC 6 Days #21 tab 10/07/20 pack] - Allergies Allergies/Adverse Reactions: Allergies Allergy/AdvReac Type Severity Reaction Status Date / Time No Known Drug Allergies Allergy Verified 10/07/20 09:46 - Social History Does the pt smoke?: Yes Smoking Status: Current every day smoker Does the pt drink ETOH?: Yes Does the pt have substance abuse?: No - Immunizations Immunizations are current?: No Immunizations: TDAP >10years/unknown - POLST Patient has POLST: No PD ED PE NORMAL - Vitals Vital signs reviewed: Yes - General General: Alert and oriented X 3, No acute distress, Well developed/nourished - HEENT HEENT: Atraumatic, PERRL, EOMI - Neck Neck: Supple, no meningeal sign - Cardiac Cardiac: RRR - Respiratory Respiratory: No respiratory distress, Clear bilaterally - Abdomen Abdomen: Non tender, Non distended - Derm Derm: Normal color - Extremities Extremities: No deformity, No edema - Neuro Neuro: Alert and oriented X 3 - Psych Psych: Normal mood, Normal affect Results - Vitals Vitals: Vital Signs - 24 hr 10/07/20 10/07/20 09:41 12:44 Temperature 35.9 C L Heart Rate 103 H 76 Respiratory 16 12 Rate Blood Pressure 146/103 H 145/93 H O2 Saturation 96 96 Oxygen O2 Source Room air PD MEDICAL DECISION MAKING - ED course ED course: 40-year-old man presented with subjective shortness of breath with normal physical exam. No wheezing heard on lung auscultation, however he says that he did breathing treatments prior to arrival that helped with his wheezing. We discussed that he should cut back on smoking and continue with his maintenance inhaler breathing treatments. He requested a steroid taper and I obliged. Patient will f/u with his pmd. return precautions given. Departure - Departure Disposition: 01 Home, Self Care Clinical Impression: Shortness of breath Condition: Good Instructions: Tips Cardiovascular Quit Smoking Prescriptions: predniSONE [Prednisone 21-TAB dose pack] 60 mg PO QDAC 6 Days #21 tab Comments: You were seen in the emergency department for subjective shortness of breath. Your physical exam was normal. You should follow-up with your primary doctor Dr. Campoverde this week. Return to the emergency department if you have any new or worsening symptoms or other concerns. Discharge Date/Time: 10/07/20 12:45
[2020-10-07 12:46] VITALS: BP 145/93
== END 2020-10-07 12:45 | disposition home or self-care (01) ==
LOC: ED 09:35
DX: R06.02 Shortness of breath (principal); J45.909 Unspecified asthma, uncomplicated; F17.200 Nicotine dependence, unspecified, uncomplicated
CPT/HCPCS: 93005; 99283

== ENCOUNTER 2021-04-04 07:54 | Emergency (ER) | payer MEDICAID ==
--- NOTE | 2021-04-04 08:36 | ED Physician Documentation ---
PD HPI CHEST PAIN - Stated complaint Stated Complaint: LT CHEST PX - Chief complaint Chief Complaint: Cardiac - History obtained from History obtained from: Patient - History of Present Illness Timing - onset: Today Timing - onset during: Rest Timing - duration: Minutes, Hours (1) Timing - details: Abrupt onset, Still present (has eased mostly, but still some discomfort/tenderness left pectoral area. Hurts to palpate that area.) Quality: Aching, Sharp, Pain Location: Left chest Radiation: No: Jaw, Neck, Back Worsened by: Movement (of left shoulder), Palpation. No: Exertion, Inspiration Associated symptoms: Shortness of air, Palpitations, Cough. No: Nausea, General Weakness Similar symptoms before: No diagnosis (has had this intermittently, and randomly the past several months, lasting hours to day or so at a time.) Review of Systems Constitutional: denies: Fever, Chills, Myalgias Nose: denies: Rhinorrhea / runny nose, Congestion Throat: denies: Sore throat Cardiac: reports: Chest pain / pressure. denies: Palpitations, Pedal edema, Calf pain Respiratory: denies: Dyspnea, Cough GI: denies: Abdominal Pain, Nausea, Vomiting Skin: denies: Rash, Lesions Musculoskeletal: denies: Neck pain, Back pain, Extremity swelling Neurologic: denies: Near syncope PD PAST MEDICAL HISTORY - Past Medical History Past Medical History: Yes Cardiovascular: None Respiratory: Asthma Neuro: None Endocrine/Autoimmune: None GI: GERD : Frequency, Other HEENT: Other Psych: None Musculoskeletal: Gout, Chronic back pain Derm: None - Past Surgical History Past Surgical History: Yes General: Bowel surgery, Other Ortho: Other - Present Medications Home Medications: Ambulatory Orders Medication Instructions Recorded Confirmed Oxybutynin [Ditropan] 5 mg PO BID 08/28/14 04/04/21 allopurinoL [Allopurinol] 100 mg PO BID 08/28/14 04/04/21 Albuterol Sulf [Ventolin Hfa 1 - 2 puffs INH Q4HR PRN #1 inhaler 10/14/18 04/04/21 Inhaler] Divalproex ER [Depakote ER] 500 mg PO DAILY 10/07/20 04/04/21 Fluticasone/Salmeterol [Advair 1 each IH DAILY 05/21/21 11/16/21 250-50 Diskus] Meloxicam [Mobic] 7.5 mg PO BID 10 Days #20 tablet 04/04/21 - Allergies Allergies/Adverse Reactions: Allergies Allergy/AdvReac Type Severity Reaction Status Date / Time No Known Drug Allergies Allergy Verified 04/04/21 08:10 - Social History Does the pt smoke?: Yes Smoking Status: Current every day smoker Does the pt drink ETOH?: Yes Does the pt have substance abuse?: No - Immunizations Immunizations are current?: No Immunizations: TDAP >10years/unknown - POLST Patient has POLST: No PD ED PE NORMAL - Vitals Vital signs reviewed: Yes - General General: Alert and oriented X 3, No acute distress, Well developed/nourished - Neck Neck: Supple, no meningeal sign, No adenopathy - Cardiac Cardiac: RRR, No murmur - Respiratory Respiratory: Clear bilaterally, Other (left upper pectoral area with chest wall tenderness to deeper palpation. No rash nor sores. ) - Abdomen Abdomen: Soft, Non tender - Derm Derm: Normal color, Warm and dry - Extremities Extremities: No tenderness to palpate, No edema, No calf tenderness / cord - Neuro Neuro: Alert and oriented X 3, No motor deficit, Normal speech Results - Vitals Vitals: Vital Signs - 24 hr 04/04/21 04/04/21 08:10 08:50 Temperature 37.2 C Heart Rate 85 92 Respiratory 15 22 Rate Blood Pressure 152/100 H 116/84 H O2 Saturation 99 97 Oxygen O2 Source Room air - EKG (time done) in triage Rhythm: NSR [place]: Normal Intervals: Normal ND QRS: Normal Ischemia: Normal ST segments. No: ST elevation c/w ischemia, ST depression - Rads (name of study) chest xray Radiology: Prelim report reviewed, See rad report (no acute process) PD MEDICAL DECISION MAKING - ED course Complexity details: reviewed results, re-evaluated patient (feeling better with meds here in ER. ), considered differential (seems muscular, but eval for PTX/ effusion/ DC/ CHF.), d/w patient Departure - Departure Disposition: 01 Home, Self Care Clinical Impression: Left-sided chest pain Condition: Stable Record reviewed to determine appropriate education?: Yes Instructions: ED Chest Pain Costochondritis Follow-Up: Darrel Campoverde MD [Primary Care Provider] - Prescriptions: Meloxicam [Mobic] 7.5 mg PO BID 10 Days #20 tablet Comments: Your EKG is normal. Your chest x-ray does not show any obvious lung abno rmality. Presume you have some inflammation in the chest wall muscles or cartilage that is just not improving. We can try treating this with a different anti-inflammatory Meloxicam regularly twice daily for the next 7 to 10 days. To that add Tylenol every 4-6 hours if needed for pain. Activity as tolerated. Recheck if not better over the next week. Return if worse or other symptoms develop. Discharge Date/Time: 04/04/21 10:10
[2021-04-04 08:50] VITALS: BP 116/84
[2021-04-04] MEDS ORDERED: CHERRY SYRUP 10 ML UDC PO ONE (09:10)
[2021-04-04] MEDS ORDERED: DEXAMETHASONE 10 MG/ML VIAL PO STA (09:10)
--- NOTE | 2021-04-04 09:37 | XRAY Report ---
PROCEDURE: Chest 2 View X-Ray INDICATIONS: dyspnea/ cough TECHNIQUE: 2 view(s) of the chest. COMPARISON: 08/14/2018. FINDINGS: Surgical changes and devices: None. Lungs and pleura: No pleural effusions or pneumothorax. Lungs are clear. Mediastinum: Mediastinal contours are normal. Heart size is normal. Bones and chest wall: No suspicious bony abnormalities. Soft tissues appear unremarkable. IMPRESSION: No acute cardiopulmonary disease process. Reviewed by: Jessica Thomas MD, PhD on 04/04/2021 9:36 AM PST Approved by: Jessica Thomas MD, PhD on 04/04/2021 9:36 AM [facility] Station ID: [id number]
== END 2021-04-04 10:10 | disposition home or self-care (01) ==
LOC: ED 07:54
DX: R07.89 Other chest pain (principal); F17.200 Nicotine dependence, unspecified, uncomplicated
CPT/HCPCS: 71046; 93005; 99283; 99284; A9270

== ENCOUNTER 2021-06-14 07:26 | Outpatient (CLI) | payer MEDICAID ==
[2021-06-14 07:45] LABS: BASOPHILS % (AUTO) 0.3 %; EOSINOPHILS # (AUTO) 0.2 10^3/uL (0.0-0.7); HCT - HEMATOCRIT 46.9 % (42.0-52.0); LYMPHOCYTES # (AUTO) 1.9 10^3/uL (1.5-3.5); MEAN CORPUSCULAR HEMOGLOBIN 32.8 pg (27.0-31.0); MEAN CORPUSCULAR HGB CONC 36.2 g/dL (32.0-36.0); MEAN CORPUSCULAR VOLUME 90.5 fL (80.0-94.0); MEAN PLATELET VOLUME 10.2 fL (7.4-11.4); MONOCYTES # (AUTO) 0.3 10^3/uL (0.0-1.0); MONOCYTES % (AUTO) 5.7 %; NEUTROPHILS # (AUTO) 3.5 10^3/uL (1.5-6.6); NEUTROPHILS % (AUTO) 57.5 %; PLT - PLATELET COUNT 178 10^3/uL (130-450); RED BLOOD COUNT 5.18 10^6/uL (4.70-6.10); RED CELL DISTRIBUTION WIDTH 12.3 % (12.0-15.0)
[2021-06-14 08:11] LABS: ALBUMIN 4.2 g/dL (3.2-5.5); ALBUMIN/GLOBULIN RATIO 1.3 (1.0-2.2); ALKALINE PHOSPHATASE 90 IU/L (42-121); ALT ALANINE AMINOTRANSFERASE 33 IU/L (10-60); AST ASPARTATE AMINOTRANSFERASE 23 IU/L (10-42); BILIRUBIN,TOTAL 0.5 mg/dL (0.2-1.0); BUN - BLOOD UREA NITROGEN 16 mg/dL (6-20); CALCIUM 9.1 mg/dL (8.5-10.3); CARBON DIOXIDE - CO2 25 mmol/L (21-32); CHLORIDE 100 mmol/L (101-111); CHOL/HDL RATIO 5.5 (<5.0); CHOLESTEROL 180 mg/dL; CREATININE 1.1 mg/dL (0.6-1.2); GFR - MDRD 73 (>89); GLUCOSE 101 mg/dL (70-100); HDL CHOLESTEROL 33 mg/dL; LDL CHOLESTEROL,CALCULATED 99 mg/dL; POTASSIUM 4.2 mmol/L (3.5-5.0); SODIUM 135 mmol/L (135-145); TOTAL PROTEIN 7.5 g/dL (6.7-8.2); TRIGLYCERIDES 240 mg/dL; URIC ACID 5.7 mg/dL (2.6-7.2); VLDL CHOLESTEROL 48 mg/dL
[2021-06-14 08:17] LABS: THYROID STIMULATING HORMONE 2.99 uIU/mL (0.34-5.60)
== END 2021-06-14 07:27 | disposition home or self-care (01) ==
LOC: LAB 07:26
PROVIDERS: ATTEND Family Medicine
DX: F31.12 Bipolar disorder, current episode manic without psychotic features, moderate (principal); M10.9 Gout, unspecified; J45.909 Unspecified asthma, uncomplicated; K21.9 Gastro-esophageal reflux disease without esophagitis; G80.9 Cerebral palsy, unspecified; F17.200 Nicotine dependence, unspecified, uncomplicated
CPT/HCPCS: 36415; 80053; 80061; 83721; 84443; 84550; 85025

== ENCOUNTER 2021-08-28 11:42 | Emergency (ER) | payer MEDICAID ==
[2021-08-28 11:49] VITALS: BP 149/79
--- NOTE | 2021-08-28 12:07 | ED Physician Documentation ---
PD HPI URI - Stated complaint Stated Complaint: COUGH - Chief complaint Chief Complaint: Resp - History obtained from History obtained from: Patient - History of Present Illness Timing - onset: How many weeks ago (1) Timing duration: Weeks (1) Timing details: Gradual onset Pain level max: 0 Pain level now: 0 Associated symptoms: Dry cough. No: Fever, Chills, Sweats, Ear pain Contributing factors: COPD / asthma Improves by: Rest, Medication, MDI/nebulizer Worsened by: Activity, Breathing - Additional information Additional information: 41-year-old male, smokes approximately 1 pack/day. He states he has had a cough for the past week. Dry. Increased wheezing. Albuterol and steroid inhalers at home do not seem to be helping. Increased difficulty breathing. No fever. No chills. No Covid exposure. Has been vaccinated Review of Systems Constitutional: denies: Fever, Chills GI: denies: Vomiting, Diarrhea Skin: denies: Rash Musculoskeletal: denies: Neck pain, Back pain Neurologic: denies: Headache PD PAST MEDICAL HISTORY - Past Medical History Past Medical History: Yes Cardiovascular: None Respiratory: Asthma Neuro: None Endocrine/Autoimmune: None GI: GERD : Frequency, Other HEENT: Other Psych: None Musculoskeletal: Gout, Chronic back pain Derm: None - Past Surgical History Past Surgical History: Yes General: Bowel surgery, Other Ortho: Other - Present Medications Home Medications: Ambulatory Orders Medication Instructions Recorded Confirmed Oxybutynin [Ditropan] 5 mg PO BID 08/28/14 04/04/21 allopurinoL [Allopurinol] 100 mg PO BID 08/28/14 04/04/21 Albuterol Sulf [Ventolin Hfa 1 - 2 puffs INH Q4HR PRN #1 inhaler 10/14/18 04/04/21 Inhaler] Divalproex ER [Depakote ER] 500 mg PO DAILY 10/07/20 04/04/21 Fluticasone/Salmeterol [Advair 1 each IH DAILY 10/07/20 04/04/21 250-50 Diskus] Meloxicam [Mobic] 7.5 mg PO BID 10 Days #20 tablet 04/04/21 Benzonatate [Tessalon] 200 mg PO TID PRN #30 cap 08/28/21 Doxycycline Monohydrate 100 mg PO BID #20 cap 08/28/21 predniSONE [Deltasone] 10 mg PO [id number] #42 tab 08/28/21 - Allergies Allergies/Adverse Reactions: Allergies Allergy/AdvReac Type Severity Reaction Status Date / Time No Known Drug Allergies Allergy Verified 08/28/21 11:48 - Social History Does the pt smoke?: Yes Smoking Status: Current every day smoker Does the pt drink ETOH?: Yes Does the pt have substance abuse?: No - Immunizations Immunizations are current?: No Immunizations: TDAP >10years/unknown - POLST Patient has POLST: No PD ED PE NORMAL - Vitals Vital signs reviewed: Yes - General General: Alert and oriented X 3, No acute distress - HEENT HEENT: PERRL - Neck Neck: Supple, no meningeal sign - Cardiac Cardiac: RRR - Respiratory Respiratory: No respiratory distress, Other (Diffuse wheezing bilaterally. No respiratory distress. No retractions.) - Abdomen Abdomen: Soft, Non tender, Non distended - Derm Derm: Warm and dry - Extremities Extremities: No edema - Neuro Neuro: Alert and oriented X 3 - Psych Psych: Normal mood, Normal affect Results - Vitals Vitals: Vital Signs - 24 hr 08/28/21 11:47 Temperature 36.4 C L Heart Rate 78 Respiratory 16 Rate Blood Pressure 149/79 H O2 Saturation 97 Oxygen O2 Source Room air - Rads (name of study) Chest x-ray Radiology: Final report received, EMP read contemporaneously, See rad report (no acute disease) PD MEDICAL DECISION MAKING - ED course Complexity details: reviewed results, re-evaluated patient, considered differential, d/w patient ED course: 41-year-old male with likely COPD exacerbation. Unclear if he has a formal diagnosis of COPD, however his chest x-ray would be consistent with COPD as what his home medication regimen. Patient was counseled to stop smoking. He does not have interest in this at this time. We will treat him as a COPD exacerbation with steroids, doxycycline and antitussive medication. Patient will continue his inhalers at home. Patient will follow up with his doctor for further care. Patient is well-appearing, nontoxic. Afebrile. No hypoxia. No respiratory distress. Patient counseled regarding signs and symptoms for which I believe and urgent re-evaluation would be necessary. Patient with good understanding of and agreement to plan and is comfortable going home at this time This document was made in part using voice recognition software. While efforts are made to proofread this document, sound alike and grammatical errors may occur. Departure - Departure Disposition: 01 Home, Self Care Clinical Impression: Bronchitis Condition: Good Instructions: ED Bronchitis Asthmatic Follow-Up: Darrel Campoverde MD [Primary Care Provider] - Within 1 week Prescriptions: predniSONE [Deltasone] 10 mg PO [id number] #42 tab Doxycycline Monohydrate 100 mg PO BID #20 cap Benzonatate [Tessalon] 200 mg PO TID PRN #30 cap PRN Reason: Cough Comments: Your prescriptions were sent to [facility]. Use the medications as prescribed. Return if you worsen. Discharge Date/Time: 08/28/21 12:20
--- NOTE | 2021-08-28 12:24 | XRAY Report ---
PROCEDURE: Chest 2 View X-Ray INDICATIONS: cough TECHNIQUE: 2 view(s) of the chest. COMPARISON: None. FINDINGS: Surgical changes and devices: None. Lungs and pleura: No pleural effusions or pneumothorax. Lungs are clear. Mediastinum: Mediastinal contours are normal. Heart size is normal. Bones and chest wall: No suspicious bony abnormalities. Soft tissues appear unremarkable. IMPRESSION: Normal two-view chest x-ray Reviewed by: Anthony Fagan MD on 08/28/2021 11:22 AM TIAGO Approved by: Anthony Fagan MD on 08/28/2021 11:22 AM TIAGO Station ID: [id number]
== END 2021-08-28 12:20 | disposition home or self-care (01) ==
LOC: ED 11:42
DX: J40 Bronchitis, not specified as acute or chronic (principal); F17.200 Nicotine dependence, unspecified, uncomplicated
CPT/HCPCS: 99283; 99284

== ENCOUNTER 2021-11-15 08:01 | Emergency (ER) | payer MEDICAID ==
[2021-11-15 08:09] VITALS: BP 129/95
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
[2021-11-15] MEDS ORDERED: HYDROcod/ACETAM 5/325 MG TABLET PO STA (08:25)
[2021-11-15] MEDS ORDERED: NAPROXEN 250 MG TABLET PO STA (08:25)
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
== END 2021-11-15 09:32 | disposition home or self-care (01) ==
LOC: ED 08:01
DX: S20.212A Contusion of left front wall of thorax, initial encounter (principal); S46.912A Strain of unspecified muscle, fascia and tendon at shoulder and upper arm level, left arm, initial encounter; S50.811A Abrasion of right forearm, initial encounter; V49.9XXA Car occupant (driver) (passenger) injured in unspecified traffic accident, initial encounter; F17.200 Nicotine dependence, unspecified, uncomplicated
CPT/HCPCS: 71101; 99282; 99283; A9270

== ENCOUNTER 2022-06-19 08:19 | Outpatient (CLI) | payer MEDICAID ==
[2022-06-19 08:31] LABS: BASOPHILS % (AUTO) 0.1 %; EOSINOPHILS # (AUTO) 0.3 10^3/uL (0.0-0.7); EOSINOPHILS % (AUTO) 3.1 %; HCT - HEMATOCRIT 48.5 % (42.0-52.0); HGB - HEMOGLOBIN 16.7 g/dL (14.0-18.0); LYMPHOCYTES # (AUTO) 2.3 10^3/uL (1.5-3.5); LYMPHOCYTES % (AUTO) 29.2 %; MEAN CORPUSCULAR HEMOGLOBIN 32.1 pg (27.0-31.0); MEAN CORPUSCULAR HGB CONC 34.4 g/dL (32.0-36.0); MEAN CORPUSCULAR VOLUME 93.3 fL (80.0-94.0); MEAN PLATELET VOLUME 10.8 fL (7.4-11.4); MONOCYTES # (AUTO) 0.5 10^3/uL (0.0-1.0); MONOCYTES % (AUTO) 6.4 %; NEUTROPHILS # (AUTO) 4.9 10^3/uL (1.5-6.6); NEUTROPHILS % (AUTO) 61.1 %; PLT - PLATELET COUNT 187 10^3/uL (130-450); RED CELL DISTRIBUTION WIDTH 12.2 % (12.0-15.0)
[2022-06-19 08:56] LABS: ALBUMIN 4.6 g/dL (3.2-5.5); ALBUMIN/GLOBULIN RATIO 1.4 (1.0-2.2); ALKALINE PHOSPHATASE 81 IU/L (42-121); ALT ALANINE AMINOTRANSFERASE 20 IU/L (10-60); AST ASPARTATE AMINOTRANSFERASE 21 IU/L (10-42); BILIRUBIN,TOTAL 0.8 mg/dL (0.2-1.0); BUN - BLOOD UREA NITROGEN 16 mg/dL (6-20); CALCIUM 9.6 mg/dL (8.5-10.3); CARBON DIOXIDE - CO2 28 mmol/L (21-32); CHLORIDE 98 mmol/L (101-111); CHOL/HDL RATIO 2.8 (<5.0); CHOLESTEROL 98 mg/dL; CREATININE 1.1 mg/dL (0.6-1.2); GFR - MDRD 73 (>89); GLUCOSE 94 mg/dL (70-100); HDL CHOLESTEROL 35 mg/dL; LDL CHOLESTEROL,CALCULATED 43 mg/dL; LDL/HDL RATIO 1.2 (<3.6); POTASSIUM 3.9 mmol/L (3.5-5.0); SODIUM 139 mmol/L (135-145); TOTAL PROTEIN 7.9 g/dL (6.7-8.2); TRIGLYCERIDES 102 mg/dL; VLDL CHOLESTEROL 20 mg/dL
[2022-06-19 09:01] LABS: THYROID STIMULATING HORMONE 1.36 uIU/mL (0.34-5.60)
== END 2022-06-19 08:20 | disposition home or self-care (01) ==
LOC: LAB 08:19
PROVIDERS: ATTEND Family Medicine
DX: F31.12 Bipolar disorder, current episode manic without psychotic features, moderate (principal); R94.5 Abnormal results of liver function studies; M10.9 Gout, unspecified; J45.909 Unspecified asthma, uncomplicated; K21.9 Gastro-esophageal reflux disease without esophagitis; F90.9 Attention-deficit hyperactivity disorder, unspecified type; G80.9 Cerebral palsy, unspecified
CPT/HCPCS: 36415; 80053; 80061; 83721; 84443; 85025

== ENCOUNTER 2023-03-04 09:32 | Outpatient (CLI) | payer OTHER, MEDICAID ==
[2023-03-04 09:47] LABS: ESTIMATED AVERAGE GLUCOSE 100 mg/dL (70-100); HEMOGLOBIN A1c% 5.1 % (4.27-6.07)
== END 2023-03-04 09:33 | disposition home or self-care (01) ==
LOC: LAB.R 09:32
PROVIDERS: ATTEND Registered Nurse
DX: R73.09 Other abnormal glucose (principal)
CPT/HCPCS: 83036